=== PATIENT | female | born 1980 | race African-American/Black ===

== ENCOUNTER 2017-06-05 14:34 | Emergency (ER) | payer MEDICAID, OTHER ==
[2017-06-05 14:56] VITALS: BP 139/87
[2017-06-05 15:17] LABS: APPEARANCE,URINE SLIGHTLY-CLOUDY; BILIRUBIN,URINE NEGATIVE (NEGATIVE); GLUCOSE, URINE NEGATIVE (NEGATIVE); KETONES,URINE NEGATIVE (NEGATIVE); LEUKOCYTE ESTERASE,URINE LARGE (NEGATIVE); NITRITE,URINE NEGATIVE (NEGATIVE); PROTEIN,URINE 30 mg/dL (NEGATIVE); URINE SPECIFIC GRAVITY 1.035
--- NOTE | 2017-06-05 15:55 | ER Document Report ---
ED GI/ - General Chief Complaint: Urinary Frequency Stated Complaint: URINARY PROBLEMS Time Seen by Provider: 06/05/17 15:41 Mode of Arrival: Ambulatory Information source: Patient Notes: 36-year-old female presents to ED for complaint of frequency burning and pressure with urination for the last 2 days. She states she thinks she has a UTI as she has had them in the past. TRAVEL OUTSIDE OF THE [place] IN LAST 30 DAYS: No - HPI Patient complains to provider of: Other - Pressure burning and frequency with urination Onset: Other Timing/Duration: Persistent Quality of pain: Burning Severity at maximum: Moderate Severity in ED: Moderate Pain Level: 2 Location: Vaginal Vaginal bleeding (Compared to normal period): None Associated symptoms: Urinary frequency, Urinary urgency, Other - Pressure and burning Exacerbated by: Other - Urination Relieved by: Denies Similar symptoms previously: Yes Recently seen / treated by doctor: No - Related Data Allergies/Adverse Reactions: No Known Allergies Allergy (Verified 12/26/11 12:29) Past Medical History - General Information source: Patient - Social History Smoking Status: Never Smoker Cigarette use (# per day): No Chew tobacco use (# tins/day): No Smoking Education Provided: No Frequency of alcohol use: None Drug Abuse: None Occupation: Dialysis PCT Lives with: Alone Family History: Arthritis, DM, Hypertension. denies: CAD, COPD, CVA, Hyperlipidemia, Malignancy, Thyroid Disfunction Patient has suicidal ideation: No Patient has homicidal ideation: No - Past Medical History Cardiac Medical History: Reports: None Pulmonary Medical History: Reports: None EENT Medical History: Reports: None Neurological Medical History: Reports: None Endocrine Medical History: Reports: None Renal/ Medical History: Reports: None Malignancy Medical History: Reports: None GI Medical History: Reports: None Musculoskeltal Medical History: Reports None Skin Medical History: Reports None Psychiatric Medical History: Reports: None Traumatic Medical History: Reports: None Infectious Medical History: Reports: None Past Surgical History: Reports: Hx Tonsillectomy - Immunizations Hx Diphtheria, Pertussis, Tetanus Vaccination: Yes Review of Systems - Review of Systems Constitutional: No symptoms reported EENT: No symptoms reported Cardiovascular: No symptoms reported Respiratory: No symptoms reported Gastrointestinal: No symptoms reported Genitourinary: Burning, Frequency, Urgency, Other - Pressure Female Genitourinary: No symptoms reported Musculoskeletal: No symptoms reported Skin: No symptoms reported Hematologic/Lymphatic: No symptoms reported Neurological/Psychological: No symptoms reported -: Yes All other systems reviewed and negative Physical Exam - Vital signs Vitals: Temp Pulse Resp BP Pulse Ox 98.7 F 85 18 139/87 H 98 06/05/17 14:52 06/05/17 14:52 06/05/17 14:52 06/05/17 14:52 06/05/17 14:52 Interpretation: Normal - General General appearance: Appears well, Alert - HEENT Head: Normocephalic, Atraumatic Eyes: Normal Pupils: PERRL - Respiratory Respiratory status: No respiratory distress Chest status: Nontender Breath sounds: Normal Chest palpation: Normal - Cardiovascular Rhythm: Regular Heart sounds: Normal auscultation Murmur: No - Abdominal Inspection: Normal Distension: No distension Bowel sounds: Normal Tenderness: Nontender Organomegaly: No organomegaly - Back Back: Normal, Nontender - Extremities General upper extremity: Normal inspection, Nontender, Normal color, Normal ROM , Normal temperature General lower extremity: Normal inspection, Nontender, Normal color, Normal ROM , Normal temperature, Normal weight bearing. No: Rachel's sign - Neurological Neuro grossly intact: Yes Cognition: Normal Orientation: AAOx4 Matheson Coma Scale Eye Opening: Spontaneous Angelika Coma Scale Verbal: Oriented Matheson Coma Scale Motor: Obeys Commands Angelika Coma Scale Total: 15 Speech: Normal Motor strength normal: LUE, RUE, LLE, RLE Sensory: Normal - Psychological Associated symptoms: Normal affect, Normal mood - Skin Skin Temperature: Warm Skin Moisture: Dry Skin Color: Normal Course - Re-evaluation Re-evalutation: 06/05/17 16:30 Patient treated for UTI and will send culture for urine. - Vital Signs Vital signs: Temp Pulse Resp BP Pulse Ox 98.7 F 85 18 139/87 H 98 06/05/17 14:52 06/05/17 14:52 06/05/17 14:52 06/05/17 14:52 06/05/17 14:52 - Laboratory Laboratory results interpreted by me: 06/05/17 15:00 Urine Protein 30 H Urine Urobilinogen 4.0 H Ur Leukocyte Esterase LARGE H Urine Ascorbic Acid 20 H Discharge - Discharge Clinical Impression: UTI (urinary tract infection) Qualifiers: Urinary tract infection type: site unspecified Hematuria presence: without hematuria Qualified Code(s): N39.0 - Urinary tract infection, site not specified Condition: Stable Disposition: HOME, SELF-CARE Instructions: Family Physicians / Practices Additional Instructions: URINARY TRACT INFECTION: Your evaluation indicates that you have a urinary tract infection. This is due to germs growing in the bladder. This is a common problem. This infection usually responds quickly to antibiotics. Your antibiotic should be taken exactly as prescribed. Drink plenty of fluids -- three to four quarts a day. Occasionally, a bladder anesthetic will be prescribed to help stop the feeling of urgency until the antibiotic has a chance to clear the infection. This may cause your urine to be dark orange. Certain urine infections require a culture. If the doctor obtained a culture, the results will be back in two days. You should call to see if a change in treatment is needed. A repeat urinalysis after you finish treatment is often recommended. The physician will let you know if further testing is required. Call the doctor if you develop fever, chills, flank pain, inability to urinate, or blood in the urine. NITROFURANTOIN (MACRODANTIN, MACROBID): You have received a prescription for nitrofurantoin (Macrodantin). This antibiotic is used for urinary tract infections. Women who are or nursing should notify the physician before taking this medicine. If you have ever had a problem caused by this medication in the past, be sure the physician is aware of it. Common side effects of this medicine include nausea, vomiting, or decreased appetite. Notify your physician if these side effects become severe. Immediately stop this medicine and call the physician if you develop cough , shortness of breath, chest pain, weakness, jaundice (yellow color of the skin and whites of the eyes), or a skin rash. FOLLOW-UP CARE: If you have been referred to a physician for follow-up care, call the physician s office for an appointment as you were instructed or within the next two days. If you experience worsening or a significant change in your symptoms, notify the physician immediately or return to the Emergency Department at any time for re-evaluation. Prescriptions: Nitrofurantoin/Nitrofuran Mac [Macrobid 100 mg Capsule] 1 tab PO BID #20 capsule Forms: Return to Work
== END 2017-06-05 16:04 | disposition home or self-care (01) ==
LOC: ER 14:34
DX: N39.0 Urinary tract infection, site not specified (principal)
CPT/HCPCS: 81001; 81025; 87086; 99283

== ENCOUNTER 2017-12-11 00:44 | Emergency (ER) | payer SELFPAY ==
[2017-12-11 00:51] VITALS: BP 149/90
--- NOTE | 2017-12-11 00:51 | ER Document Report ---
ED GI/ - General Chief Complaint: Vomiting Stated Complaint: SPOTTING/VAGINAL BLEEDING Time Seen by Provider: 12/11/17 00:51 TRAVEL OUTSIDE OF THE [place] IN LAST 30 DAYS: No - Related Data Allergies/Adverse Reactions: No Known Allergies Allergy (Verified 12/26/11 12:29) Past Medical History - Social History Family History: Arthritis, DM, Hypertension. denies: CAD, COPD, CVA, Hyperlipidemia, Malignancy, Thyroid Disfunction Renal/ Medical History: Denies: Hx Peritoneal Dialysis Past Surgical History: Reports: Hx Tonsillectomy - Immunizations Hx Diphtheria, Pertussis, Tetanus Vaccination: Yes
--- NOTE | 2017-12-11 01:01 | ER Document Report ---
ED Medical Screen (RME) - General Chief Complaint: Vomiting Stated Complaint: SPOTTING/VAGINAL BLEEDING Time Seen by Provider: 12/11/17 00:51 Mode of Arrival: Ambulatory Information source: Patient Notes: I went up to the pivot desk in saw the patient getting her vital signs taken she was seated. I did not talk with the patient but I did assign her to go to room 33 so that I could see her and put orders in. The patient got up from the lobby and told the pivot nurse that she wanted to just be seen in the morning and that she wanted to go home tonight the pivot nurse made her left without being seen. TRAVEL OUTSIDE OF THE [place] IN LAST 30 DAYS: No - Related Data Allergies/Adverse Reactions: No Known Allergies Allergy (Verified 12/26/11 12:29) Past Medical History Renal/ Medical History: Denies: Hx Peritoneal Dialysis Past Surgical History: Reports: Hx Tonsillectomy - Immunizations Hx Diphtheria, Pertussis, Tetanus Vaccination: Yes Physical Exam - Vital signs Vitals: Temp Pulse Resp BP Pulse Ox 97.9 F 77 16 149/90 H 100 12/11/17 00:50 12/11/17 00:50 12/11/17 00:50 12/11/17 00:50 12/11/17 00:50 Course - Vital Signs Vital signs: Temp Pulse Resp BP Pulse Ox 97.9 F 77 16 149/90 H 100 12/11/17 00:50 12/11/17 00:50 12/11/17 00:50 12/11/17 00:50 12/11/17 00:50 Doctor's Discharge - Discharge Disposition: LEFT WITHOUT BEING SEEN
== END 2017-12-11 00:56 | disposition left against medical advice (07) ==
LOC: ER 00:44
DX: Z53.21 Procedure and treatment not carried out due to patient leaving prior to being seen by health care provider (principal)

== ENCOUNTER 2019-10-17 11:05 | Emergency (ER) | payer SELFPAY ==
--- NOTE | 2019-10-17 11:16 | ER Document Report ---
ED Medical Screen (RME) - General Chief Complaint: OB Problem (<20wks) Stated Complaint: OB ISSUE Time Seen by Provider: 10/17/19 11:11 TRAVEL OUTSIDE OF THE [place] IN LAST 30 DAYS: No - HPI Notes: 10/17/19 11:15 Patient is a 38-year-old female approximately 18 weeks who presents from the [facility] clinic with concern of no heartbeat on ultrasound. Patient states that she has otherwise been feeling well. She has not had any pain, bleeding, or discharge. No fever or recent illness. I have treated and performed a rapid initial assessment of this patient. A comprehensive ED assessment and evaluation of the patient, analysis of test results and completion of medical decision making process will be conducted by additional ED providers. PHYSICAL EXAMINATION: GENERAL: Well-appearing, well-nourished and in no acute distress. A&Ox4. Answers questions appropriately. - Related Data Allergies/Adverse Reactions: No Known Allergies Allergy (Verified 12/26/11 12:29) Past Medical History Renal/ Medical History: Denies: Hx Peritoneal Dialysis Past Surgical History: Reports: Hx Tonsillectomy - Immunizations Hx Diphtheria, Pertussis, Tetanus Vaccination: Yes Physical Exam - Vital signs Vitals: Temp Pulse Resp BP Pulse Ox 98.6 F 102 H 20 135/85 H 98 10/17/19 11:12 10/17/19 11:12 10/17/19 11:12 10/17/19 11:12 10/17/19 11:12 Course - Vital Signs Vital signs: Temp Pulse Resp BP Pulse Ox 98.6 F 102 H 20 135/85 H 98 10/17/19 11:12 10/17/19 11:12 10/17/19 11:12 10/17/19 11:12 10/17/19 11:12
--- NOTE | 2019-10-17 11:44 | ER Document Report ---
ED General - General Chief Complaint: OB Problem (<20wks) Stated Complaint: OB ISSUE Time Seen by Provider: 10/17/19 11:11 Notes: Patient presents with incidental finding of no heart tones on a commercially available for dimensional ultrasound that she was getting for a gender reveal. She is G5, P4 at approximately 18 weeks by dates and is followed at [facility]. She has no cramping bleeding or other symptoms. Ultrasound here confirmed the above per injection mold technician. TRAVEL OUTSIDE OF THE [place] IN LAST 30 DAYS: No - Related Data Allergies/Adverse Reactions: No Known Allergies Allergy (Verified 12/26/11 12:29) Past Medical History - Social History Smoking Status: Never Smoker Frequency of alcohol use: None Drug Abuse: None Family History: Arthritis, DM, Hypertension. denies: CAD, COPD, CVA, Hyperlipidemia, Malignancy, Thyroid Disfunction Patient has suicidal ideation: No Patient has homicidal ideation: No Renal/ Medical History: Denies: Hx Peritoneal Dialysis Past Surgical History: Reports: Hx Tonsillectomy - Immunizations Hx Diphtheria, Pertussis, Tetanus Vaccination: Yes Review of Systems - Review of Systems Notes: REVIEW OF SYSTEMS GEN: Denies fever, chills, weight loss ENT: Denies sore throat, nasal discharge, ear pain EYES: Denies blurry vision, eye pain, discharge CV: Denies chest pain, palpitations, edema RESP: Denies cough, shortness of breath, wheezing GI: Denies abdominal pain, nausea, vomiting, diarrhea MSK: Denies joint pain/swelling, edema, SKIN: Denies rash, skin lesions LYMPH: Denies swollen glands/lymph nodes NEURO: Denies headache, focal weakness or numbness, dizziness PSYCH: Denies depression, suicidal or homicidal ideation PHYSICAL EXAMINATION General: No acute distress, well-nourished Head: Atraumatic, normocephalic ENT: Mouth normal, oropharynx moist, no exudates or tonsillar enlargement Eyes: Conjunctiva normal, pupils equal, lids normal Neck: No JVD, supple, no guarding CVS: Normal rate, regular rhythm, no murmurs Resp: No resp distress, equal and normal breath sounds bilaterally GI: Nondistended, soft, no tenderness to palpation, no rebound or guarding Ext: No deformities, no edema, normal range of motion in upper and lower ext Back: No CVA or midline TTP Skin: No rash, warm Lymphatic: No lymphadeopathy noted Neuro: Awake, alert. Face symmetric. GCS 15. Physical Exam - Vital signs Vitals: Temp Pulse Resp BP Pulse Ox 98.6 F 102 H 20 135/85 H 98 10/17/19 11:12 10/17/19 11:12 10/17/19 11:12 10/17/19 11:12 10/17/19 11:12 Course - Re-evaluation Re-evalutation: 10/17/19 11:43 Missed , normal vitals no signs of expulsion, septic or other serious illness. Unknown blood type but not bleeding so not an issue at this time. Will discuss with [facility] SENIOR CARE PROVIDER for follow-up patient is not excited about Cytotec or miscarrying at home and will likely ask for a procedure. 10/17/19 14:[address] Maddox. They will handle Rh typing and RhoGam if necessary if the patient bleeds and will follow-up in the office tomorrow. This was relayed to the patient. I have discussed with the patient there likely diagnosis, aftercare plan, follow-up plans and my usual and customary return precautions. They verbalized understanding of this. - Vital Signs Vital signs: Temp Pulse Resp BP Pulse Ox 98.9 F 92 20 132/86 H 98 10/17/19 12:51 10/17/19 12:51 10/17/19 12:51 10/17/19 12:51 10/17/19 12:51 - Diagnostic Test Radiology reviewed: Image reviewed, Reports reviewed Discharge - Discharge Clinical Impression: Missed with demise before 20 completed weeks of gestation Condition: Good Disposition: HOME, SELF-CARE Additional Instructions: Please call your [facility] women's health team for follow-up either tomorrow or Monday
--- NOTE | 2019-10-17 12:50 | RADIOLOGY REPORT (SQ) ---
EXAM DESCRIPTION: U/S OB LIMITED COMPLETED DATE/TIME: 10/17/2019 11:06 am FINDINGS: FETUSES SEEN:Single EGA: 16 week 0 days Calculated using BPD,FL,HC,AC documented on images. This measures 2 weeks smalle r than dates. ROBERT: NA. EFW: 149 g +/-22 g grams PERCENTILE: 26 JOSE: Visibly low PLACENTA: Posterior PRESENTATION: Vertex ANATOMY: HEART RATE: No heart rate is detected with enema mode, pulse wave Doppler, cine images, o r color Doppler imaging performed by the sonographic technologist. Limited anatomic evaluation. IMPRESSION: No heart rate is obtained. Measurements are 2 weeks behind clinical dates. Findi ngs consistent with demise. Trimester of : Second trimester - 13 weeks 1 day to 27 weeks 6 days. COMMENT: Findings discussed with Carmen Mc on 10/17/2027 at 1241 hours. TECHNICAL DOCUMENTATION: JOB ID: [id number] 2010 [employer]- All Rights Reserved REASON FOR STUDY: ? no heart beat at outside clinic, approx 18wks ? no heart beat at outside clinic, approx 18 wks . LMP 06/13/2019. Gestational age based on LMP 18 weeks 0 days. . COMPARISON: None. TECHNIQUE: Limited transabdominal Grayscale ultrasound for evaluation of specific requested obstetri raúl parameters. LIMITATIONS: None. Reading location - IP/workstation name: [email or web address]
[2019-10-17 12:52] VITALS: BP 132/86
== END 2019-10-17 12:52 | disposition home or self-care (01) ==
LOC: ER 11:05
DX: O02.1 Missed abortion (principal); Z3A.18 18 weeks gestation of pregnancy
CPT/HCPCS: 76815